=== PATIENT | male | born 1985 | race Caucasian/White ===

== ENCOUNTER 2017-04-09 10:11 | Emergency (ER) | payer SELFPAY ==
[~2017-04-09] VITALS: Ht 177.8 cm; Wt 141.0 kg
[~2017-04-09 10:11] MED LIST: AMOX875 PO; CORTIS10A AU; OXYC-360 PO; Z.0.NO CURRENT MEDS
[2017-04-09 10:14] VITALS: BP 138/86; PULSE 77; RESP 13; TEMP 97.8; O2SAT 97
[2017-04-09 11:42] VITALS: BP 179/107; PULSE 76; RESP 19; TEMP 98; O2SAT 99
[2017-04-09] MEDS ORDERED: SODIUM CHLORIDE 0.9% FLUSH 10 ML FLUSH IVF PRN (11:45)
[2017-04-09] MEDS ORDERED: ASPIRIN 81 MG CHEW TAB PO ONE (11:45)
[2017-04-09 11:47] VITALS: BP_SYST 159; BP_SYST 162; BP_DIAS 85; BP_DIAS 90; PULSE 70; PULSE 77; RESP 19; TEMP 98; O2SAT 99
--- NOTE | 2017-04-09 11:47 | PD ---
HPI Chief Complaint: Chest Pain Time Seen by Provider: 11:34 Travel History International Travel<30 days: No Contact w/Intl Traveler<30days: No Traveled to known affect area: No History of Present Illness HPI 31-year-old male presents to the emergency department for evaluation of intermittent shortness of breath, chest tightness that started yesterday morning. He states that he will feel short of breath and has chest tightness. It'll last a few seconds and go away when he takes a deep breath. However, it has been reoccurring. I'll occur with both activity and rest. Patient denies any history of the same in the past. He states he had chest pain as a child that was musculoskeletal, but no a she since. He does report a history of aortic stenosis, mitral valve prolapse, heart murmur. 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 He is also currently not established with a primary care physician. He reports no other medical problems and takes no prescribed medications. He does report trouble last weekend, 7 [address] car ride to [place]. He denies any new leg edema. No history DVT/PE. No history of OK. No nausea, vomiting, diarrhea. No abdominal pain. No fevers or chills. No cough or congestion. PFSH Past Medical History Heart Rhythm Problems: Yes (MVP, AORTIC STENOSIS) Cardiovascular Problems: Yes Diminished Hearing: No Hypertension: Yes Migraines: Yes Past Surgical History Ear Surgery: Yes (TUBES BILATERALLY AT AGE 4.) Social History Alcohol Use: No Tobacco Use: No Substance Use: No Allergies-Medications (Allergen,Severity, Reaction): Coded Allergies: No Known Allergies (Verified , 04/09/17) Reported Meds & Prescriptions Reported Meds & Active Scripts Active No Active Prescriptions or Reported Medications Review of Systems Except as stated in HPI: all other systems reviewed are Neg Physical Exam Narrative GENERAL: Well-nourished, well-developed male patient, afebrile. SKIN: Focused skin assessment warm/dry. HEAD: Normocephalic. Atraumatic. ENT: Mucosa pink and moist. No erythema or exudates. No uvular edema. No uvular , palatal, or tonsillar deviation. Airway patent. Nasal turbinates appear normal without nasal blood, purulent drainage or septal hematoma. Bilateral tympanic membranes are clear without erythema or perforation. EYES: No scleral icterus. No injection or drainage. NECK: Supple, trachea midline. No JVD or lymphadenopathy. CARDIOVASCULAR: Regular rate and rhythm without murmurs, gallops, or rubs. Bilateral radial and pedal pulses 2+. RESPIRATORY: Breath sounds equal bilaterally. No accessory muscle use. Lungs sounds are clear to auscultation. GASTROINTESTINAL: Abdomen soft, non-tender, nondistended. MUSCULOSKELETAL: No cyanosis, or edema. BACK: Nontender without obvious deformity. No CVA tenderness. Data Data Last Documented VS Vital Signs Date Time Temp Pulse Resp B/P (MAP) Pulse Ox O2 Delivery O2 Flow Rate FiO2 04/09/17 11:47 99 Room Air 04/09/17 11:47 98.0 70 19 159/85 (109) Orders Orders Electrocardiogram (04/09/17 10:23) Electrocardiogram (04/09/17 11:42) Basic Metabolic Panel (Bmp) (04/09/17 11:42) Ckmb (Isoenzyme) Profile (04/09/17 11:42) Complete Blood Count With Diff (04/09/17 11:42) D-Dimer (04/09/17 11:42) Magnesium (Mg) (04/09/17 11:42) Prothrombin Time / Inr (Pt) (04/09/17 11:42) Act Partial Throm Time (Ptt) (04/09/17 11:42) Troponin I (04/09/17 11:42) Chest, Single Ap (04/09/17 11:42) Ecg Monitoring (04/09/17 11:42) Bilateral Bp Monitoring (04/09/17 11:42) Iv Access Insert/Monitor (04/09/17 11:42) Oximetry (04/09/17 11:42) Oxygen Administration (04/09/17 11:42) Aspirin Chew (Aspirin Chew) (04/09/17 11:45) Sodium Chloride 0.9% Flush (Ns Flush) (04/09/17 11:45) CKMB (04/09/17 12:50) CKMB% (04/09/17 12:50) Admit Order (Ed Use Only) (04/09/17 13:38) Labs Laboratory Tests Test 04/09/17 12:50 White Blood Count 7.0 TH/MM3 Red Blood Count 5.36 MIL/MM3 Hemoglobin 14.6 GM/DL Hematocrit 43.2 % Mean Corpuscular Volume 80.7 FL Mean Corpuscular Hemoglobin 27.2 PG Mean Corpuscular Hemoglobin Concent 33.7 % Red Cell Distribution Width 13.3 % Platelet Count 263 TH/MM3 Mean Platelet Volume 6.9 FL Neutrophils (%) (Auto) 53.9 % Lymphocytes (%) (Auto) 37.1 % Monocytes (%) (Auto) 6.7 % Eosinophils (%) (Auto) 1.5 % Basophils (%) (Auto) 0.8 % Neutrophils # (Auto) 3.8 TH/MM3 Lymphocytes # (Auto) 2.6 TH/MM3 Monocytes # (Auto) 0.5 TH/MM3 Eosinophils # (Auto) 0.1 TH/MM3 Basophils # (Auto) 0.1 TH/MM3 CBC Comment DIFF FINAL Differential Comment Prothrombin Time 10.8 SEC Prothromb Time International Ratio 1.0 RATIO Activated Partial Thromboplast Time 28.0 SEC D-Dimer Quantitative (PE/DVT) 0.29 MG/L FEU Blood Urea Nitrogen 12 MG/DL Creatinine 1.14 MG/DL Random Glucose 105 MG/DL Calcium Level 9.0 MG/DL Magnesium Level 2.2 MG/DL Sodium Level 136 MEQ/L Potassium Level 4.4 MEQ/L Chloride Level 103 MEQ/L Carbon Dioxide Level 26.6 MEQ/L Anion Gap 6 MEQ/L Estimat Glomerular Filtration Rate 75 ML/MIN Total Creatine Kinase 173 U/L Creatine Kinase MB 2.8 NG/ML Troponin I LESS THAN 0.02 NG/ML MDM Medical Decision Making Medical Screen Exam Complete: Yes Emergency Medical Condition: Yes Medical Record Reviewed: Yes Interpretation(s) chest x-ray - CONCLUSION: 1. Hypoinflation with no acute cardiopulmonary process. 2. Borderline prominent heart. Differential Diagnosis ACS versus pneumothorax versus pneumonia versus chest wall pain versus anxiety versus PE Narrative Course 31-year-old male presents to the emergency department for evaluation of intermittent shortness breath, chest tightness that started yesterday morning without history of the same. He does report history of mitral valve prolapse, aortic stenosis and does not follow with primary care physician or sales secretary. EKG shows sinus rhythm, heart rate 66, no acute ST changes. CBC , BMP, CK, troponin, magnesium, PTT, PT/INR, d-dimer, chest x-ray are ordered and pending. Patient is given aspirin 162 mg by mouth. CBC shows no acute abnormality. BMP shows no acute abnormality. CK is 173. Troponin is less than 0.02. Magnesium is 2.2. Coags are unremarkable. D- dimer is 0.29. Chest x-ray shows hypoinflation with no acute cardiopulmonary process; borderline prominent heart. I discussed findings attending physician, Dr. Mayen, who agrees with admission to chest pain center. Patient agrees to this as well. Diagnosis Primary Impression: Chest pain Qualified Codes: R07.9 - Chest pain, unspecified Admitting Information Admitting Physician Requests: Observation Scripts No Active Prescriptions or Reported Meds Brittney Ohara Apr 09, 2017 11:47
--- NOTE | 2017-04-09 13:08 | RADRPT ---
EXAM DATE/TIME: 04/09/2017 12:45 [facility] COMPARISON: No previous studies available for comparison. INDICATIONS : Shortness of breath and chest pain. MEDICAL HISTORY : None. SURGICAL HISTORY : None. ENCOUNTER: Initial ACUITY: 3 days PAIN SCORE: 4/10 LOCATION: Bilateral center chest FINDINGS: A single view of the chest demonstrates the lungs to be hypoinflated but clear. Accounting for the lo w lung glands, heart size is still borderline prominent but well compensated CONCLUSION: 1. Hypoinflation with no acute cardiopulmonary process. 2. Borderline prominent heart. Nnamdi Urena MD on April 09, 2017 at 13:05 Board Certified Radiologist. This report was verified electronically.
[2017-04-09 13:09] LABS: AUTOMATED NEUTROPHIL # 3.8 TH/MM3 (1.8-7.7); BASOPHIL # 0.1 TH/MM3 (0-0.2); BASOPHIL % 0.8 % (0.0-2.0); EOSINOPHIL # 0.1 TH/MM3 (0-0.4); EOSINOPHIL % 1.5 % (0.0-4.0); HEMATOCRIT 43.2 % (39.0-51.0); HEMO FLAGS DIFF FINAL; LYMPH % 37.1 % (9.0-44.0); LYMPHOCYTE # 2.6 TH/MM3 (1.0-4.8); MEAN CELL VOLUME 80.7 FL (80.0-100.0); MEAN CORPUSCULAR HEMOGLOBIN 27.2 PG (27.0-34.0); MEAN CORPUSCULAR HGB CONC 33.7 % (32.0-36.0); MONO % 6.7 % (0.0-8.0); NEUT % 53.9 % (16.0-70.0); PLATELET COUNT 263 TH/MM3 (150-450); RED BLOOD COUNT 5.36 MIL/MM3 (4.50-5.90); RED CELL DISTRIBUTION WIDTH 13.3 % (11.6-17.2)
[2017-04-09 13:19] LABS: PROTHROMBIN TIME - PATIENT 10.8 SEC (9.8-11.6)
[2017-04-09 13:22] LABS: ANION GAP 6 MEQ/L (5-15); BICARBONATE 26.6 MEQ/L (21.0-32.0); BLOOD UREA NITROGEN 12 MG/DL (7-18); CHLORIDE 103 MEQ/L (98-107); GLOMERULAR FILTRATION RATE 75 ML/MIN (>89); MAGNESIUM 2.2 MG/DL (1.5-2.5); POTASSIUM 4.4 MEQ/L (3.5-5.1); SODIUM (NA) 136 MEQ/L (136-145)
[2017-04-09 13:26] LABS: CREATINE KINASE 173 U/L (39-308)
[2017-04-09 13:38] LABS: CKMB 2.8 NG/ML (0.5-3.6)
--- NOTE | 2017-04-09 14:26 | HHI.HP ---
HPI Primary Care Physician No Primary Care Physician Chief Complaint Chest pain History of Present Illness 31 male with history of aortic stenosis and MVP presents to the ER for further evaluation of chest tightness. Onset yesterday afternoon while working outdoors. Location substernal. Described as chest tightness. Duration 3-4 seconds. Episode occur every 30-45 minutes. No associated symptoms of nausea, vomiting, diaphoresis, or shortness of breath. No precipitating factors. Relieving factors taking a deep breath. No history of asthma, PE, DVT, or sleep apnea. Unable to sleep last night, reports he was restless due to feelings of chest tightness. Review of Systems General: No fatigue,weakness, fever, chills, or recent illness. HEENT: No MAC, no nasal congestion or drainage CV: As stated above. No current CP, pressure, or tightness. RESP: No SOB, cough, wheeze, history of asthma, or sleep apnea. GI: No nausea, vomiting, or bowel changes. No change in appetite, no unintentional weight gain or weight loss. : No dysuria EXT: No lower leg edema, no paraesthesias MS: No discomfort or change in ROM NEURO: No change in memory, dizziness, difficulty with balance, LOC, motor/ sensory deficits PSYCH: No anxiety and depression. Current situational stress. SKIN: No rashes, no concerning lesions Past Family Social History Allergies: Coded Allergies: No Known Allergies (Verified , 04/09/17) Past Medical History Aortic stenosis, MVP Past Surgical History Pins in right elbow Reported Medications Reported Meds & Active Scripts Active No Active Prescriptions or Reported Medications Active Ordered Medications Current Medications Medications (Trade) Dose Ordered Sig/Cami Route Start Time Stop Time Status Last Admin (NS Flush) 2 ml UNSCH PRN IVF 04/09/17 11:45 Family History Noncontributory for early onset cardiovascular disease. Social History No know diabetes, hypertension, or hyperlipidemia. Lifelong nonsmoker. Rare alcohol. Denies any illegal drug use. Single. Active, plays softball 3-4 times weekly. Works for an [employer]. Past cardiac testing Remote cardiac testing at age 17. History of aortic stenosis, does not follow with a hide spreader. Physical Exam Vital Signs Vital Signs Date Time Temp Pulse Resp B/P (MAP) Pulse Ox O2 Delivery O2 Flow Rate FiO2 04/09/17 11:47 99 Room Air 04/09/17 11:47 98.0 70 19 159/85 (109) 99 Room Air 04/09/17 11:47 98.0 77 19 162/90 (114) 99 Room Air 159/85 (109) 04/09/17 11:42 98.0 76 19 179/107 (131) 99 Room Air 04/09/17 11:42 76 99 Room Air 04/09/17 10:14 97.8 77 13 138/86 (103) 97 Physical Exam GENERAL: Alert WN, WD, NAD, pleasant, obese male HEAD: NC, AT NECK: Supple, no masses, trachea midline CV: RRR, 2/6 systolic murmur, no rub, no gallop, no JVD, S1-S2 no S3-S4. RESP: Clear lungs throughout bilateral, no crackles, wheeze, rhonchi, symmetrical chest rise, nonlabored, able to speak in full sentences ABD: Soft, NT, positive bowel tone EXT: Pulses +24, no dependent edema MS: Normal tone 4 extremities, nontender, no obvious deformities, full range of motion NEURO: CN II through CN XII grossly intact, motor strength 5/5, gait WNL PSYCH: A+O 3, pleasant affect, appropriate speech, appropriate mood and affect , insight and judgment SKIN: Normal turgor, normal texture, no lesions, no rashes, brisk cap refill, even hair distribution Laboratory Laboratory Tests Test 04/09/17 12:50 White Blood Count 7.0 Red Blood Count 5.36 Hemoglobin 14.6 Hematocrit 43.2 Mean Corpuscular Volume 80.7 Mean Corpuscular Hemoglobin 27.2 Mean Corpuscular Hemoglobin Concent 33.7 Red Cell Distribution Width 13.3 Platelet Count 263 Mean Platelet Volume 6.9 Neutrophils (%) (Auto) 53.9 Lymphocytes (%) (Auto) 37.1 Monocytes (%) (Auto) 6.7 Eosinophils (%) (Auto) 1.5 Basophils (%) (Auto) 0.8 Neutrophils # (Auto) 3.8 Lymphocytes # (Auto) 2.6 Monocytes # (Auto) 0.5 Eosinophils # (Auto) 0.1 Basophils # (Auto) 0.1 CBC Comment DIFF FINAL Differential Comment Prothrombin Time 10.8 Prothromb Time International Ratio 1.0 Activated Partial Thromboplast Time 28.0 D-Dimer Quantitative (PE/DVT) 0.29 Blood Urea Nitrogen 12 Creatinine 1.14 Random Glucose 105 Calcium Level 9.0 Magnesium Level 2.2 Sodium Level 136 Potassium Level 4.4 Chloride Level 103 Carbon Dioxide Level 26.6 Anion Gap 6 Estimat Glomerular Filtration Rate 75 Total Creatine Kinase 173 Creatine Kinase MB 2.8 Troponin I LESS THAN 0.02 Result Diagram: 04/09/17 1250 04/09/17 1250 Imaging Chest xray read by radiologist as: CONCLUSION: 1. Hypoinflation with no acute cardiopulmonary process. 2. Borderline prominent heart. Course EKG NSB, normal axis, no st t segment changes Caprini VTE Risk Assessment Caprini VTE Risk Assessment: No/Low Risk (score <= 1) Caprini Risk Assessment Model Point Value = 1 Point Value = 2 Point Value = 3 Point Value = 5 Age 41-60 Minor surgery BMI > 25 kg/m2 Swollen legs Varicose veins or History of unexplained or recurrent spontaneous Oral contraceptives or hormone replacement Sepsis (< 1 month) Serious lung disease, including pneumonia (< 1 month) Abnormal pulmonary function Acute myocardial infarction Congestive heart failure (< 1 month) History of inflammatory bowel disease Medical patient at bed rest Age 61-74 Arthroscopic surgery Major open surgery (> 45 min) Laparoscopic surgery (> 45 min) Malignancy Confined to bed (> 72 hours) Immobilizing plaster cast Central venous access Age >= 75 History of VTE Family history of VTE Factor V Leiden Prothrombin [id number] Lupus anticoagulant Anticardiolipin antibodies Elevated serum homocysteine Heparin-induced thrombocytopenia Other congenital or acquired thrombophilia Stroke (< 1 month) Elective arthroplasty Hip, pelvis, or leg fracture Acute spinal cord injury (< 1 month) Prophylaxis Regimen Total Risk Factor Score Risk Level Prophylaxis Regimen 0-1 Low Early ambulation 2 Moderate Order ONE of the following: *Sequential Compression Device (SCD) *Heparin 5000 units SQ BID 3-4 Higher Order ONE of the following medications: *Heparin 5000 units SQ TID *Enoxaparin/Lovenox 40 mg SQ daily (WT < 150 kg, CrCl > 30 mL/min) *Enoxaparin/Lovenox 30 mg SQ daily (WT < 150 kg, CrCl > 10-29 mL/min) *Enoxaparin/Lovenox 30 mg SQ BID (WT < 150 kg, CrCl > 30 mL/min) AND/OR *Sequential Compression Device (SCD) 5 or more Highest Order ONE of the following medications: *Heparin 5000 units SQ TID (Preferred with Epidurals) *Enoxaparin/Lovenox 40 mg SQ daily (WT < 150 kg, CrCl > 30 mL/min) *Enoxaparin/Lovenox 30 mg SQ daily (WT < 150 kg, CrCl > 10-29 mL/min) *Enoxaparin/Lovenox 30 mg SQ BID (WT < 150 kg, CrCl > 30 mL/min) AND *Sequential Compression Device (SCD) Assessment and Plan Assessment and Plan #1 Atypical chest pain-admitted to chest pain center. Seen and evaluated by Dr. Paul Gr. Chest discomfort of 3-4 seconds unlikely to be related to cardiovascular disease, d dimer within normal limits, proceed with treadmill stress testing. If unremarkable, will discharge home this afternoon. Patient agreeable to plan of care. Encouraged establishing with a primary care provider for preventive care and medical management, including following known aortic stenosis. #2 Situational stress-increase daily activity, follow a well balanced diet, getting plenty of rest, and to utilize support from family and friends. Bianca Santoro Apr 09, 2017 14:26
[2017-04-09] MEDS ORDERED: ONDANSETRON HCL 4 MG/2 ML VIAL IV PUSH PRN (14:30)
[2017-04-09] MEDS ORDERED: NITROGLYCERIN 0.4 MG SL 25 TABS/BTL SL PRN (14:30)
[2017-04-09] MEDS ORDERED: ACETAMINOPHEN 500 MG CPLT PO PRN (14:30)
--- NOTE | 2017-04-09 15:43 | HHI.DCPOC ---
Discharge Care Plan Diagnosis: (1) Atypical chest pain (2) Situational stress Goals to Promote Your Health * To prevent worsening of your condition and complications * To maintain your health at the optimal level Directions to Meet Your Goals Take your medications as prescribed Follow your dietary instruction Follow activity as directed Keep your appointments as scheduled Take your immunizations and boosters as scheduled If your symptoms worsen call your PCP, if no PCP go to Urgent Care Center or Emergency Room Smoking is Dangerous to Your Health. Avoid second hand smoke Call the 24-hour hour crisis hotline for domestic abuse at Bianca Santoro Apr 09, 2017 15:43
[2017-04-09 16:50] VITALS: BP 142/83
--- NOTE | 2017-04-09 19:17 | EKG ---
Date Performed: 04/09/2017 Time Performed: 10:26:12 PTAGE: 31 years EKG: Sinus rhythm NONSPECIFIC T-WAVE ABNORMALITY BORDERLINE ECG PREVIOUS TRACING : 10/27/2009 15.28 Compared to prior tracing no significant change DOCTOR: David Roberto Interpretating Date/Time 04/09/2017 19:16:34
[2017-04-10] MEDS ORDERED: ASPIRIN 325 MG TAB PO SCH (09:00)
--- NOTE | 2017-04-10 16:15 | TR ---
Date Performed: 04/09/2017 Time Performed: 15:08:18 DOCTOR: Tasha Romo DRUG LIST: CLINICAL HISTORY: REASON FOR TEST: Chest pain REASON FOR ENDING: OBSERVATION: CONCLUSION: Chin protocl completed. Stopped sec to reaching target heart rate and leg fatigue. Maximum BO=373 Total Exercise Time=9:06 Maximum RE=477/118. Target HR Achieved=89%. No reprod chest pain. No st t segment changes to sugg ischemia. Rare PVC. Great exercise tolerance. Hypertensive bp r esponse. Recovery quick and unremarkable.(of note, target heart rate percentage was not correlating c orrectly during exam). COMMENTS:
== END 2017-04-09 16:52 | disposition home or self-care (01) ==
LOC: NEPC 10:11 → UNDOADMOB 13:40 → NEDA 13:40
DX: R07.9 Chest pain, unspecified (principal); R06.02 Shortness of breath; R07.89 Other chest pain; I34.1 Nonrheumatic mitral (valve) prolapse; I35.0 Nonrheumatic aortic (valve) stenosis; R94.31 Abnormal electrocardiogram [ECG] [EKG]
CPT/HCPCS: 71010; 80048; 82550; 82552; 83735; 84484; 85025; 85379; 85610; 85730; 93005; 93017